=== PATIENT | female | born 1980 | race Hispanic/Latino ===

== ENCOUNTER → 2017-05-06 | Outpatient (CLI) | payer OTHER ==
[~2017-05-06] MED LIST: SERT100T PO; TOPI100T31 PO; [UNRECOGNIZED DRUG - OTHER] SQ
== END | disposition home or self-care (01) ==
LOC: RAH 09:57
PROVIDERS: ATTEND Physician Assistant Medical
DX: N63.20 Unspecified lump in the left breast, unspecified quadrant (principal); R92.2 Inconclusive mammogram
CPT/HCPCS: 76641; 77065

== ENCOUNTER → 2017-05-18 | Outpatient (CLI) | payer OTHER | END | disposition home or self-care (01) | LOC: RAH 10:00 | PROVIDERS: ATTEND Specialist | DX: N60.32 Fibrosclerosis of left breast (principal); N63.22 Unspecified lump in the left breast, upper inner quadrant | CPT/HCPCS: 19083; 76942; A4215 ×3; 19084 ==

== ENCOUNTER 2018-01-25 08:20 | Emergency (ER) | payer OTHER ==
[2018-01-25 08:59] LABS: BASOPHILS % (AUTO) 0.3 % (0.0-5.0); EOSINOPHILS % (AUTO) 2.7 % (0.0-8.0); HEMATOCRIT 40.1 % (36-48); LYMPHOCYTES % (AUTO) 12.1 % (21.0-51.0); MEAN CORPUSCULAR HEMOGLOBIN 32.8 pg (27.0-33.0); MEAN CORPUSCULAR VOLUME 96.3 fL (79-99); MONOCYTES % (AUTO) 6.6 % (3.0-13.0); NEUTROPHILS % (AUTO) 78.3 % (40.0-77.0); PLATELET COUNT (AUTO) 237 K/uL (130-400); RED BLOOD CELL COUNT(AUTO) 4.17 MIL/uL (4.00-5.50); WHITE BLOOD COUNT (AUTO) 6.7 K/uL (4.8-10.8)
[2018-01-25] MEDS ORDERED: ACETAMINOPHEN 325 MG TAB ONE (09:03)
[2018-01-25 09:07] LABS: CREATININE 0.8 mg/dL (0.5-1.5)
[2018-01-25 09:15] LABS: ALBUMIN 3.4 g/dL (3.5-5.0); BILIRUBIN,TOTAL 0.4 mg/dL (0.2-1.0); TOTAL PROTEIN, SERUM 6.6 g/dL (6.0-8.3)
== END 2018-01-25 10:08 | disposition home or self-care (01) ==
LOC: EDH 08:20
DX: S93.491A Sprain of other ligament of right ankle, initial encounter (principal); S40.011A Contusion of right shoulder, initial encounter; S70.01XA Contusion of right hip, initial encounter; S09.8XXA Other specified injuries of head, initial encounter; V49.49XA Driver injured in collision with other motor vehicles in traffic accident, initial encounter; Y93.89 Activity, other specified; Y92.89 Other specified places as the place of occurrence of the external cause; Y99.8 Other external cause status
CPT/HCPCS: 36415; 70450; 72125; 73030; 73502; 73600; 80053; 85025

== ENCOUNTER 2019-06-26 13:19 | Emergency (ER) | payer OTHER ==
[2019-06-26 14:02] LABS: BASOPHILS % (AUTO) 0.5 % (0.0-5.0); EOSINOPHILS % (AUTO) 3.2 % (0.0-8.0); HEMATOCRIT 42.1 % (36-48); LYMPHOCYTES % (AUTO) 18.8 % (21.0-51.0); MEAN CORPUSCULAR HEMOGLOBIN 31.6 pg (27.0-33.0); MEAN CORPUSCULAR HGB CONC 34.2 g/dL (32.0-36.0); MEAN CORPUSCULAR VOLUME 92.5 fL (79-99); MONOCYTES % (AUTO) 4.4 % (3.0-13.0); NEUTROPHILS % (AUTO) 72.7 % (40.0-77.0); PLATELET COUNT (AUTO) 344 K/uL (130-400); RED BLOOD CELL COUNT(AUTO) 4.55 MIL/uL (4.00-5.50); RED CELL DISTRIBUTION WIDTH 11.9 % (11.0-15.5); WHITE BLOOD COUNT (AUTO) 9.6 K/uL (4.8-10.8)
[2019-06-26 14:11] LABS: CREATININE 0.7 mg/dL (0.5-1.5); POTASSIUM 4.1 mmol/L (3.5-5.1)
[2019-06-26 14:12] LABS: PARTIAL THROMBOPLASTIN TIME 23.2 SEC (26.3-35.5)
[2019-06-26 14:17] LABS: ALBUMIN 3.6 g/dL (3.5-5.0); BILIRUBIN,TOTAL 0.3 mg/dL (0.2-1.0); TOTAL PROTEIN, SERUM 7.5 g/dL (6.0-8.3)
[2019-06-26 14:25] LABS: INR 0.94 (0.85-1.15); PROTHROMBIN TIME 9.9 SEC (9.6-11.6)
== END 2019-06-26 15:05 | disposition home or self-care (01) ==
LOC: EDH 13:19
DX: D69.6 Thrombocytopenia, unspecified (principal); Z90.49 Acquired absence of other specified parts of digestive tract; Z98.890 Other specified postprocedural states
CPT/HCPCS: 36415; 80053; 85025; 85610; 85730

== ENCOUNTER 2020-02-17 01:25 | Emergency (ER) | payer OTHER ==
[2020-02-17] MEDS ORDERED: FAMOTIDINE/PF 20 MG/2 ML VIAL IV ONE (01:53)
[2020-02-17] MEDS ORDERED: ONDANSETRON HCL 4 MG/2 ML VIAL ONE (01:53)
[2020-02-17 02:06] LABS: BASOPHILS % (AUTO) 0.3 % (0.0-5.0); HEMATOCRIT 41.3 % (36-48); LYMPHOCYTES % (AUTO) 15.7 % (21.0-51.0); MEAN CORPUSCULAR HEMOGLOBIN 27.4 pg (27.0-33.0); MEAN CORPUSCULAR VOLUME 85.7 fL (79-99); MONOCYTES % (AUTO) 5.9 % (3.0-13.0); NEUTROPHILS % (AUTO) 76.8 % (40.0-77.0); PLATELET COUNT (AUTO) 460 K/uL (130-400); RED BLOOD CELL COUNT(AUTO) 4.82 MIL/uL (4.00-5.50); RED CELL DISTRIBUTION WIDTH 12.9 % (11.0-15.5)
[2020-02-17 02:08] LABS: APPEARANCE,URINE Clear (CLEAR); BILIRUBIN,URINE Negative (NEGATIVE); COLOR,URINE Yellow (YELLOW); GLUCOSE, URINE (UA) Negative (NEGATIVE); KETONES,URINE Trace mg/dL (NEGATIVE); LEUKOCYTE ESTERASE ,URINE Trace (NEGATIVE); NITRATE,URINE Negative (NEGATIVE); OCCULT BLOOD,URINE Small (NEGATIVE); PH,URINE 6.5 (5.0-8.0); PROTEIN,URINE Negative (NEGATIVE)
[2020-02-17 02:19] LABS: BACTERIA,URINE Few /HPF (None Seen)
[2020-02-17 02:21] LABS: MUCUS,URINE Few LPF (None Seen)
[2020-02-17 02:28] LABS: ALBUMIN 3.6 g/dL (3.5-5.0); BILIRUBIN,TOTAL 0.2 mg/dL (0.2-1.0); CREATININE 0.7 mg/dL (0.5-1.5); POTASSIUM 3.8 mmol/L (3.5-5.1); TOTAL PROTEIN, SERUM 7.6 g/dL (6.0-8.3)
== END 2020-02-17 04:24 | disposition home or self-care (01) ==
LOC: EDH 01:25
DX: R10.13 Epigastric pain (principal); R11.10 Vomiting, unspecified; G35 Multiple sclerosis; D72.829 Elevated white blood cell count, unspecified; Z90.49 Acquired absence of other specified parts of digestive tract; Z90.710 Acquired absence of both cervix and uterus; Z98.890 Other specified postprocedural states; Z88.6 Allergy status to analgesic agent
CPT/HCPCS: 36415; 74176; 80053; 81001; 83605; 83690; 85025; 93005; 96361; 96374; 96375; 99285; J2405; J3490

== ENCOUNTER 2020-06-30 21:31 | Inpatient (IN) | payer OTHER ==
[~2020-06-30] VITALS: Ht 152.4 cm; Wt 57.0 kg
[2020-06-30] MEDS ORDERED: 0.9%NACL 1000ML 1,000 ML IV ONE (22:02)
[2020-06-30] MEDS ORDERED: ONDANSETRON 4MG INJ ONE (22:04)
[2020-06-30] MEDS ORDERED: MORPHINE 2 MG SYG ONE (22:04)
[2020-06-30 22:16] LABS: BASOPHILS % (AUTO) 1.1 % (0.0-5.0); HEMATOCRIT 49.2 % (36-48); LYMPHOCYTES % (AUTO) 25.3 % (21.0-51.0); MEAN CORPUSCULAR HEMOGLOBIN 29.1 pg (27.0-33.0); MEAN CORPUSCULAR HGB CONC 33.3 g/dL (32.0-36.0); MEAN CORPUSCULAR VOLUME 87.4 fL (79-99); MONOCYTES % (AUTO) 5.5 % (3.0-13.0); NEUTROPHILS % (AUTO) 67.7 % (40.0-77.0); PLATELET COUNT (AUTO) 603 K/uL (130-400); RED BLOOD CELL COUNT(AUTO) 5.63 MIL/uL (4.00-5.50); RED CELL DISTRIBUTION WIDTH 13.2 % (11.0-15.5); WHITE BLOOD COUNT (AUTO) 4.7 K/uL (4.8-10.8)
[2020-06-30 22:31] LABS: CREATININE 1.6 mg/dL (0.5-1.5)
[2020-06-30 22:40] LABS: ALBUMIN 2.7 g/dL (3.5-5.0); BILIRUBIN,TOTAL 0.7 mg/dL (0.2-1.0); TOTAL PROTEIN, SERUM 7.5 g/dL (6.0-8.3)
[2020-06-30] MEDS ORDERED: ZOSYN 3.375GM+NS 50ML 50 ML IV ONE (23:01)
[2020-06-30] MEDS ORDERED: IOHEXOL-350 75 ML VIAL IV ONE (23:07)
[2020-06-30] MEDS ORDERED: HYDROMORPHONE 1 MG INJ ONE (23:43)
[2020-06-30 23:54] LABS: APPEARANCE,URINE Clear (CLEAR); BILIRUBIN,URINE Negative (NEGATIVE); COLOR,URINE Yellow (YELLOW); GLUCOSE, URINE (UA) Negative (NEGATIVE); KETONES,URINE Negative (NEGATIVE); LEUKOCYTE ESTERASE ,URINE Negative (NEGATIVE); NITRATE,URINE Negative (NEGATIVE); OCCULT BLOOD,URINE Small (NEGATIVE); PH,URINE 5.5 (5.0-8.0); PROTEIN,URINE POS 1+ mg/dL (NEGATIVE)
[2020-07-01] VITALS (22 sets, daily range): BP systolic 99–141; BP diastolic 59–91
[2020-07-01 00:01] LABS: BACTERIA,URINE Few /HPF (None Seen); RBC,URINE 0-1 /HPF (0-1); WBC,URINE None Seen /HPF (0-1)
[2020-07-01] MEDS ORDERED: VANCOMYCIN PROTOCOL PER PHARMACY IV SCH (00:30)
[2020-07-01] MEDS ORDERED: VANCOMYCIN 1G/250ML KIT 250 ML IV SCH (00:30)
[2020-07-01] MEDS ORDERED: HYDROMORPHONE 1 MG INJ ONE ×2 (00:41→05:39)
[2020-07-01] MEDS ORDERED: GUAIFENESIN-DM 200/20 MG 10 ML PO PRN (00:45)
[2020-07-01] MEDS ORDERED: DiphenhydrAMINE HCL 50 MG/ML VIAL IV PRN (00:45)
[2020-07-01] MEDS ORDERED: MAG/ALUM/SIMETH 30 ML UDCUP PO PRN (00:45)
[2020-07-01] MEDS ORDERED: NITROGLYCERIN 0.4 MG SL TAB SL PRN (00:45)
[2020-07-01] MEDS ORDERED: LACTULOSE 20 GM/30 ML UDCUP PO PRN (00:45)
[2020-07-01] MEDS ORDERED: PHARMACY COMMUNICATION MISC SCH ×2 (01:00→14:45)
[2020-07-01] MEDS ORDERED: FLUCONAZOLE 200 MG/NS 100 ML 100 ML ONE (01:53)
[2020-07-01] MEDS ORDERED: VANCOMYCIN 1G/250ML KIT 250 ML IV ONE (01:53)
[2020-07-01 04:59] LABS: HEMATOCRIT 30.5 % (36-48); MEAN CORPUSCULAR HEMOGLOBIN 29.4 pg (27.0-33.0); MEAN CORPUSCULAR HGB CONC 32.8 g/dL (32.0-36.0); MEAN CORPUSCULAR VOLUME 89.7 fL (79-99); RED BLOOD CELL COUNT(AUTO) 3.4 MIL/uL (4.00-5.50); RED CELL DISTRIBUTION WIDTH 13.4 % (11.0-15.5); WHITE BLOOD COUNT (AUTO) 1.9 K/uL (4.8-10.8)
[2020-07-01 05:12] LABS: ALANINE AMINOTRANSFERASE 15 U/L (12-78); ALBUMIN 0.7 g/dL (3.5-5.0); ASPARTATE AMINOTRANSFERASE 30 U/L (10-37); BILIRUBIN,TOTAL 0.3 mg/dL (0.2-1.0); CARBON DIOXIDE 11 mmol/L (21-32); CREATININE 0.4 mg/dL (0.5-1.5); GLOMERULAR FILTR. RATE CALC 188 mL/min (>60); GLUCOSE,RANDOM 82 mg/dL (70-105); SODIUM SERUM 145 mmol/L (136-145); TOTAL PROTEIN, SERUM 2.7 g/dL (6.0-8.3); UREA NITROGEN, BLOOD 15 mg/dL (7-18)
[2020-07-01 05:13] LABS: ABG BASE EXCESS -7.7 mmol/L (-2.0-3.0); ABG HCO3 17.5 mmol/L (21.0-28.0); ABG OXYGEN SATURATION 95.5 % (95.0-99.0); ABG PCO2 35 mmHg (32-45)
[2020-07-01 05:37] LABS: POTASSIUM 2.5 mmol/L (3.5-5.1)
[2020-07-01 05:38] LABS: CHLORIDE 122 mmol/L (101-111)
[2020-07-01] MEDS ORDERED: POTASSIUM CHLORIDE 10% ELIXIR 20 MEQ/15 ML UDCUP PO PRN (06:00)
[2020-07-01] MEDS: LACTATED RINGERS 1000ML 1,000 ML IV SCH ×4 (06:28→21:27)
[2020-07-01 06:42] LABS: CREATININE 0.7 mg/dL (0.5-1.5); POTASSIUM 4.2 mmol/L (3.5-5.1)
[2020-07-01] MEDS ORDERED: COMPOUND IV MISC 1 EACH IVSOLN MISC PRN (07:00)
[2020-07-01] MEDS ORDERED: ZOSYN 3.375GM+NS 50ML 50 ML IV ONE (07:24)
[2020-07-01] MEDS ORDERED: LIDOCAINE PF 100MG/5ML (2%) SYRINGE 5ML ONE (07:59)
[2020-07-01] MEDS ORDERED: SUCCINYLCHOLINE CHLORIDE 20 MG/ML 10 ML VIAL ONE (07:59)
[2020-07-01] MEDS ORDERED: PROPOFOL 10 MG/ML 20ML VIAL IV ONE (08:00)
[2020-07-01] MEDS ORDERED: ROCURONIUM 10MG/1ML SYR 10 MG/ML ML ONE ×2 (08:01→08:51)
[2020-07-01] MEDS ORDERED: MIDAZOLAM HCL 1 MG/ML 2ML VIAL ONE (08:01)
[2020-07-01] MEDS ORDERED: ALBUMIN (HUMAN) 5% 250 ML IV ONE (08:27)
[2020-07-01] MEDS ORDERED: SODIUM BICARB 8.4% 50ML SYRINGE ONE ×2 (08:27→09:20)
[2020-07-01] MEDS: ZOSYN 3.375GM+NS 50ML 50 ML IV SCH ×3 (08:30→16:00)
[2020-07-01 08:31] LABS: ABG BASE EXCESS -9.1 mmol/L (-2.0-3.0); ABG HCO3 18.1 mmol/L (21.0-28.0); ABG OXYGEN SATURATION 99.5 % (95.0-99.0); ABG PCO2 44 mmHg (32-45)
[2020-07-01] MEDS ORDERED: FENTANYL CITRATE PF 50 MCG/1 ML 5ML AMP IV ONE (08:39)
[2020-07-01] MEDS ORDERED: CEFAZOLIN SODIUM 1 GM VIAL ONE (08:50)
[2020-07-01] MEDS ORDERED: FAMOTIDINE 20MG VIAL IV SCH (09:00)
[2020-07-01] MEDS: ACYCLOVIR 500 MG VIAL 500 MG in 0.9%NACL 100ML 100 ML IV SCH (09:00)
[2020-07-01 09:17] LABS: ABG BASE EXCESS -4.3 mmol/L (-2.0-3.0); ABG HCO3 19.2 mmol/L (21.0-28.0); ABG PCO2 31 mmHg (32-45)
[2020-07-01] MEDS ORDERED: PHENYLEPHRINE HCL 10 MG/ML 1ML VIAL IV ONE (09:39)
[2020-07-01] MEDS ORDERED: METOCLOPRAMIDE 10 MG/2 ML VIAL ONE (09:40)
[2020-07-01] MEDS ORDERED: GLYCOPYRROLATE 1 MG/5 ML SYRINGE ONE (09:43)
[2020-07-01] MEDS ORDERED: NEOSTIGMINE 5MG/5ML SYR IV ONE (09:43)
[2020-07-01] MEDS ORDERED: LIDOCAINE HCL 400MG/20ML VIAL ONE (09:44)
[2020-07-01] MEDS ORDERED: BUPIVACAINE/EPI/PF 0.5% 30ML VIAL IJ ONE (09:45)
[2020-07-01] MEDS ORDERED: SUGAMMADEX SODIUM 200 MG/2 ML VIAL IV ONE (10:12)
[2020-07-01] MEDS: VANCOMYCIN 1G/250ML KIT 250 ML IV SCH ×2 (11:42→21:27)
[2020-07-01] MEDS: FLUCONAZOLE 400 MG/NS 200 ML 200 ML IV SCH (11:43)
[2020-07-01] MEDS ORDERED: BUPR-49 PO (12:44)
[2020-07-01] MEDS ORDERED: FAMO20TA8 PO (12:44)
[2020-07-01] MEDS ORDERED: VALA500T42 PO (12:44)
[2020-07-01] MEDS ORDERED: HYDR-4381 PO (12:45)
[2020-07-01] MEDS ORDERED: CETI10TA57 PO (12:45)
[2020-07-01] MEDS ORDERED: GLUCAGON 1MG KIT 1 MG ML IM PRN (13:45)
[2020-07-01] MEDS ORDERED: DEXTROSE 50%-WATER 50 ML DISP.SYRIN IV PRN (13:45)
[2020-07-01] MEDS: HYDROMORPHONE 1 MG INJ IVP PRN ×2 (14:28→21:25)
[2020-07-01 14:37] LABS: ALBUMIN 1.3 g/dL (3.5-5.0); BILIRUBIN,TOTAL 0.3 mg/dL (0.2-1.0); CREATININE 0.9 mg/dL (0.5-1.5); POTASSIUM 3.8 mmol/L (3.5-5.1); TOTAL PROTEIN, SERUM 4.4 g/dL (6.0-8.3)
[2020-07-01] MEDS ORDERED: [UNRECOGNIZED DRUG - OTHER] IJ SCH (15:00)
[2020-07-01] MEDS ORDERED: FOSPHENYTOIN SODIUM IJ SCH (15:00)
[2020-07-01 15:28] LABS: BASOPHILS % (AUTO) 1.4 % (0.0-5.0); EOSINOPHILS % (AUTO) 0.3 % (0.0-8.0); HEMATOCRIT 37.2 % (36-48); LYMPHOCYTES % (AUTO) 18.1 % (21.0-51.0); MEAN CORPUSCULAR HEMOGLOBIN 29.2 pg (27.0-33.0); MEAN CORPUSCULAR HGB CONC 33.6 g/dL (32.0-36.0); MEAN CORPUSCULAR VOLUME 86.9 fL (79-99); MONOCYTES % (AUTO) 4.5 % (3.0-13.0); NEUTROPHILS % (AUTO) 74.9 % (40.0-77.0); PLATELET COUNT (AUTO) 397 K/uL (130-400); RED BLOOD CELL COUNT(AUTO) 4.28 MIL/uL (4.00-5.50); RED CELL DISTRIBUTION WIDTH 13.5 % (11.0-15.5); WHITE BLOOD COUNT (AUTO) 3.5 K/uL (4.8-10.8)
[2020-07-01] MEDS: INSULIN HUMULIN R 100 UNIT/ML 3ML SQ SCH (17:11)
[2020-07-01] MEDS: PANTOPRAZOLE 40 MG/VIAL IVP SCH (21:26)
[2020-07-02] VITALS (22 sets, daily range): BP systolic 105–153; BP diastolic 58–82
[2020-07-02] MEDS: LACTATED RINGERS 1000ML 1,000 ML IV SCH ×4 (00:45→20:51)
[2020-07-02] MEDS ORDERED: LACTATED RINGERS 1000ML 500 ML IV ONE (00:45)
[2020-07-02] MEDS: ZOSYN 3.375GM+NS 50ML 50 ML IV SCH ×3 (00:56→15:51)
[2020-07-02] MEDS ORDERED: MORPHINE 2 MG SYG IM PRN (02:45)
[2020-07-02] MEDS ORDERED: FOSPHENYTOIN SODIUM 200 MG in 0.9%NACL 50ML 50 ML IJ SCH (03:00)
[2020-07-02] MEDS ORDERED: MORPHINE 2 MG SYG ONE (03:36)
[2020-07-02] MEDS: INSULIN HUMULIN R 100 UNIT/ML 3ML SQ SCH ×4 (05:01→17:28)
[2020-07-02 06:01] LABS: BASOPHILS % (AUTO) 0.1 % (0.0-5.0); EOSINOPHILS % (AUTO) 0.2 % (0.0-8.0); HEMATOCRIT 32.1 % (36-48); LYMPHOCYTES % (AUTO) 6.7 % (21.0-51.0); MEAN CORPUSCULAR HEMOGLOBIN 28.8 pg (27.0-33.0); MEAN CORPUSCULAR HGB CONC 32.7 g/dL (32.0-36.0); MEAN CORPUSCULAR VOLUME 88.2 fL (79-99); MONOCYTES % (AUTO) 2.9 % (3.0-13.0); NEUTROPHILS % (AUTO) 88.5 % (40.0-77.0); PLATELET COUNT (AUTO) 298 K/uL (130-400); RED BLOOD CELL COUNT(AUTO) 3.64 MIL/uL (4.00-5.50); RED CELL DISTRIBUTION WIDTH 13.8 % (11.0-15.5); WHITE BLOOD COUNT (AUTO) 12.3 K/uL (4.8-10.8)
[2020-07-02 06:31] LABS: ALBUMIN 1.2 g/dL (3.5-5.0); BILIRUBIN,TOTAL 0.2 mg/dL (0.2-1.0); CREATININE 0.7 mg/dL (0.5-1.5); MAGNESIUM 1.6 mg/dL (1.80-2.40); POTASSIUM 3.8 mmol/L (3.5-5.1); TOTAL PROTEIN, SERUM 4.8 g/dL (6.0-8.3)
[2020-07-02] MEDS: POTASSIUM CHLORIDE 20MEQ/100ML 100 ML IV PRN ×2 (06:39→14:06)
[2020-07-02 06:59] LABS: CRP QUANTITATIVE 646.7 mg/L (0.00-9.0)
[2020-07-02] MEDS: ACYCLOVIR 500 MG VIAL 500 MG in 0.9%NACL 100ML 100 ML IV SCH (07:51)
[2020-07-02] MEDS: FLUCONAZOLE 400 MG/NS 200 ML 200 ML IV SCH (07:51)
[2020-07-02] MEDS: VANCOMYCIN 1G/250ML KIT 250 ML IV SCH ×2 (07:51→20:52)
[2020-07-02] MEDS: PANTOPRAZOLE 40 MG/VIAL IVP SCH ×2 (07:52→20:52)
[2020-07-02] MEDS ORDERED: METOPROLOL TARTRATE 1 MG/ML 5ML VIAL IV PRN ×2 (08:30→08:45)
[2020-07-02] MEDS ORDERED: ACETAMINOPHEN 650 MG SUPPOSITORY RC PRN (08:45)
[2020-07-02] MEDS ORDERED: MORPHINE 2 MG SYG IV PRN (08:45)
[2020-07-02] MEDS: METOPROLOL TARTRATE 1 MG/ML 5ML VIAL IV PRN ×2 (09:00→16:40)
[2020-07-02] MEDS ORDERED: FUROSEMIDE 100MG VIAL IVP SCH (09:15)
[2020-07-02] MEDS: MAGNESIUM 2GM PREMIX 50ML 50 ML IV PRN (09:19)
[2020-07-02] MEDS: FUROSEMIDE 40MG VIAL IVP SCH ×2 (12:27→20:51)
[2020-07-02 13:15] LABS: CREATININE 0.8 mg/dL (0.5-1.5); MAGNESIUM 2.4 mg/dL (1.80-2.40); POTASSIUM 3.6 mmol/L (3.5-5.1)
[2020-07-02] MEDS: MORPHINE 2 MG SYG IM PRN (20:52)
[2020-07-03] VITALS (29 sets, daily range): BP systolic 119–147; BP diastolic 53–82
[2020-07-03] MEDS: ZOSYN 3.375GM+NS 50ML 50 ML IV SCH ×3 (00:52→17:00)
[2020-07-03] MEDS: METOPROLOL TARTRATE 1 MG/ML 5ML VIAL IV PRN (02:46)
[2020-07-03 03:37] LABS: BASOPHILS % (AUTO) 0.1 % (0.0-5.0); EOSINOPHILS % (AUTO) 0.1 % (0.0-8.0); HEMATOCRIT 29.8 % (36-48); LYMPHOCYTES % (AUTO) 5.4 % (21.0-51.0); MEAN CORPUSCULAR HGB CONC 32.9 g/dL (32.0-36.0); MEAN CORPUSCULAR VOLUME 88.2 fL (79-99); MONOCYTES % (AUTO) 2.6 % (3.0-13.0); NEUTROPHILS % (AUTO) 89.6 % (40.0-77.0); PLATELET COUNT (AUTO) 185 K/uL (130-400); RED BLOOD CELL COUNT(AUTO) 3.38 MIL/uL (4.00-5.50); RED CELL DISTRIBUTION WIDTH 14.1 % (11.0-15.5); WHITE BLOOD COUNT (AUTO) 17.1 K/uL (4.8-10.8)
[2020-07-03 03:54] LABS: ALBUMIN 1.4 g/dL (3.5-5.0); BILIRUBIN,TOTAL 0.4 mg/dL (0.2-1.0); CREATININE 0.7 mg/dL (0.5-1.5); POTASSIUM 3.4 mmol/L (3.5-5.1); TOTAL PROTEIN, SERUM 5.6 g/dL (6.0-8.3)
[2020-07-03] MEDS: LACTATED RINGERS 1000ML 1,000 ML IV SCH ×3 (04:24→20:49)
[2020-07-03] MEDS: INSULIN HUMULIN R 100 UNIT/ML 3ML SQ SCH ×4 (06:00→18:00)
[2020-07-03] MEDS: FUROSEMIDE 40MG VIAL IVP SCH ×3 (06:33→21:41)
[2020-07-03] MEDS: POTASSIUM CHLORIDE 20MEQ/100ML 100 ML IV PRN ×3 (06:33→22:24)
[2020-07-03] MEDS: VANCOMYCIN 1G/250ML KIT 250 ML IV SCH ×2 (07:55→22:24)
[2020-07-03] MEDS: FLUCONAZOLE 400 MG/NS 200 ML 200 ML IV SCH (07:56)
[2020-07-03] MEDS: PANTOPRAZOLE 40 MG/VIAL IVP SCH ×2 (07:56→20:56)
[2020-07-03] MEDS: ACYCLOVIR 500 MG VIAL 500 MG in 0.9%NACL 100ML 100 ML IV SCH (08:02)
[2020-07-03] MEDS: MORPHINE 2 MG SYG IM PRN ×2 (19:27→23:41)
[2020-07-04] VITALS (29 sets, daily range): BP systolic 117–155; BP diastolic 54–82
[2020-07-04] MEDS: ZOSYN 3.375GM+NS 50ML 50 ML IV SCH ×3 (00:04→16:32)
[2020-07-04] MEDS: POTASSIUM CHLORIDE 20MEQ/100ML 100 ML IV PRN ×3 (01:43→09:09)
[2020-07-04] MEDS ORDERED: MIDO5TAB4 PO (04:29)
[2020-07-04 04:55] LABS: BASOPHILS % (AUTO) 0.4 % (0.0-5.0); EOSINOPHILS % (AUTO) 0.3 % (0.0-8.0); HEMATOCRIT 27.4 % (36-48); LYMPHOCYTES % (AUTO) 8.8 % (21.0-51.0); MEAN CORPUSCULAR HEMOGLOBIN 28.4 pg (27.0-33.0); MEAN CORPUSCULAR HGB CONC 32.1 g/dL (32.0-36.0); MEAN CORPUSCULAR VOLUME 88.4 fL (79-99); MONOCYTES % (AUTO) 5.1 % (3.0-13.0); NEUTROPHILS % (AUTO) 84.8 % (40.0-77.0); PLATELET COUNT (AUTO) 124 K/uL (130-400); RED CELL DISTRIBUTION WIDTH 14.2 % (11.0-15.5); WHITE BLOOD COUNT (AUTO) 14.2 K/uL (4.8-10.8)
[2020-07-04 05:33] LABS: ALBUMIN 1.2 g/dL (3.5-5.0); BILIRUBIN,TOTAL 0.4 mg/dL (0.2-1.0); CREATININE 0.5 mg/dL (0.5-1.5); POTASSIUM 3.3 mmol/L (3.5-5.1); TOTAL PROTEIN, SERUM 5.5 g/dL (6.0-8.3)
[2020-07-04] MEDS: INSULIN HUMULIN R 100 UNIT/ML 3ML SQ SCH ×4 (05:40→18:00)
[2020-07-04] MEDS: FUROSEMIDE 40MG VIAL IVP SCH (05:44)
[2020-07-04] MEDS: LACTATED RINGERS 1000ML 1,000 ML IV SCH ×2 (05:46→16:33)
[2020-07-04] MEDS ORDERED: VANCOMYCIN 1G 2 GM in 0.9% NACL 500ML IV.SOLN 500 ML IV SCH (09:00)
[2020-07-04] MEDS: PANTOPRAZOLE 40 MG/VIAL IVP SCH ×2 (09:08→21:00)
[2020-07-04] MEDS: ACYCLOVIR 500 MG VIAL 500 MG in 0.9%NACL 100ML 100 ML IV SCH (09:09)
[2020-07-04] MEDS: FLUCONAZOLE 400 MG/NS 200 ML 200 ML IV SCH (09:09)
[2020-07-04] MEDS ORDERED: DIATR MEGLU/DIATRIZOATE SODIUM 30 ML BOTTLE ONE (10:27)
[2020-07-04] MEDS ORDERED: VANCOMYCIN 1G/250ML KIT 250 ML IV SCH (21:00)
[2020-07-05] VITALS (20 sets, daily range): BP systolic 112–148; BP diastolic 58–76
[2020-07-05] MEDS: ZOSYN 3.375GM+NS 50ML 50 ML IV SCH ×4 (00:17→23:10)
[2020-07-05] MEDS: INSULIN HUMULIN R 100 UNIT/ML 3ML SQ SCH ×4 (05:25→18:00)
[2020-07-05 05:27] LABS: BASOPHILS % (AUTO) 0.2 % (0.0-5.0); EOSINOPHILS % (AUTO) 0.7 % (0.0-8.0); HEMATOCRIT 28.3 % (36-48); LYMPHOCYTES % (AUTO) 10.1 % (21.0-51.0); MEAN CORPUSCULAR HEMOGLOBIN 29.1 pg (27.0-33.0); MEAN CORPUSCULAR HGB CONC 33.6 g/dL (32.0-36.0); MEAN CORPUSCULAR VOLUME 86.8 fL (79-99); MONOCYTES % (AUTO) 8.8 % (3.0-13.0); NEUTROPHILS % (AUTO) 78.9 % (40.0-77.0); PLATELET COUNT (AUTO) 141 K/uL (130-400); RED BLOOD CELL COUNT(AUTO) 3.26 MIL/uL (4.00-5.50); RED CELL DISTRIBUTION WIDTH 14.2 % (11.0-15.5); WHITE BLOOD COUNT (AUTO) 15.1 K/uL (4.8-10.8)
[2020-07-05 05:43] LABS: CREATININE 0.6 mg/dL (0.5-1.5)
[2020-07-05 06:02] LABS: POTASSIUM 2.4 mmol/L (3.5-5.1)
[2020-07-05] MEDS: POTASSIUM CHLORIDE 20MEQ/100ML 100 ML IV PRN ×4 (06:26→14:11)
[2020-07-05] MEDS: PANTOPRAZOLE 40 MG/VIAL IVP SCH ×2 (07:56→20:35)
[2020-07-05] MEDS: FLUCONAZOLE 400 MG/NS 200 ML 200 ML IV SCH (07:56)
[2020-07-05] MEDS: MORPHINE 2 MG SYG IM PRN (07:58)
[2020-07-05] MEDS: ACYCLOVIR 500 MG VIAL 500 MG in 0.9%NACL 100ML 100 ML IV SCH (09:20)
[2020-07-05] MEDS ORDERED: MAGNESIUM 2GM PREMIX 50ML 50 ML IV PRN (10:00)
[2020-07-05 12:01] LABS: CREATININE 0.6 mg/dL (0.5-1.5); POTASSIUM 3.1 mmol/L (3.5-5.1)
[2020-07-05] MEDS: HYDROCODONE/ACETAMINOPHEN 5/325 MG TAB PO PRN ×4 (12:46→23:10)
[2020-07-05] MEDS: LACTATED RINGERS 1000ML 1,000 ML IV SCH (14:02)
[2020-07-06] VITALS (10 sets, daily range): BP systolic 100–130; BP diastolic 53–74
[2020-07-06] MEDS: INSULIN HUMULIN R 100 UNIT/ML 3ML SQ SCH ×4 (05:30→21:30)
[2020-07-06 06:17] LABS: BASOPHILS % (AUTO) 0.4 % (0.0-5.0); EOSINOPHILS % (AUTO) 0.5 % (0.0-8.0); HEMATOCRIT 34.8 % (36-48); LYMPHOCYTES % (AUTO) 6.7 % (21.0-51.0); MEAN CORPUSCULAR HEMOGLOBIN 28.4 pg (27.0-33.0); MEAN CORPUSCULAR HGB CONC 32.8 g/dL (32.0-36.0); MEAN CORPUSCULAR VOLUME 86.6 fL (79-99); MONOCYTES % (AUTO) 7.2 % (3.0-13.0); NEUTROPHILS % (AUTO) 83.1 % (40.0-77.0); PLATELET COUNT (AUTO) 153 K/uL (130-400); RED BLOOD CELL COUNT(AUTO) 4.02 MIL/uL (4.00-5.50); RED CELL DISTRIBUTION WIDTH 14.1 % (11.0-15.5); WHITE BLOOD COUNT (AUTO) 17.7 K/uL (4.8-10.8)
[2020-07-06 06:34] LABS: CREATININE 0.6 mg/dL (0.5-1.5); MAGNESIUM 1.6 mg/dL (1.80-2.40)
[2020-07-06 06:44] LABS: POTASSIUM 2.9 mmol/L (3.5-5.1)
[2020-07-06] MEDS ORDERED: LACTATED RINGERS 1000ML 500 ML IV ONE (08:15)
[2020-07-06] MEDS: HYDROCODONE/ACETAMINOPHEN 5/325 MG TAB PO PRN ×3 (08:41→21:15)
[2020-07-06] MEDS: ZOSYN 3.375GM+NS 50ML 50 ML IV SCH ×2 (08:43→18:18)
[2020-07-06] MEDS ORDERED: VALACYCLOVIR HCL 500 MG TABLET PO SCH (09:30)
[2020-07-06] MEDS: PANTOPRAZOLE 40 MG TAB DR PO SCH ×2 (11:04→15:30)
[2020-07-06] MEDS: CETIRIZINE HCL 5 MG TABLET PO SCH (11:04)
[2020-07-06] MEDS: KCL 20 MEQ ERTAB PO PRN ×4 (11:04→18:21)
[2020-07-06] MEDS: BUPROPION HCL 150 MG TABLET.SA PO SCH (11:05)
[2020-07-06] MEDS: LACTATED RINGERS 1000ML 1,000 ML IV SCH (11:21)
[2020-07-06] MEDS: FLUCONAZOLE 400 MG/NS 200 ML 200 ML IV SCH (12:42)
[2020-07-06] MEDS: MAGNESIUM 2GM PREMIX 50ML 50 ML IV PRN (15:33)
[2020-07-06] MEDS ORDERED: KETOROLAC 30MG VIAL (30MG/ML) ONE (19:26)
[2020-07-06] MEDS ORDERED: KETOROLAC 30MG VIAL (30MG/ML) IV SCH (20:30)
[2020-07-06] MEDS: FAMOTIDINE 20MG TAB PO SCH (21:14)
[2020-07-06] MEDS: POTASSIUM CHLORIDE 20MEQ/100ML 100 ML IV PRN (21:15)
[2020-07-07] MEDS: ZOSYN 3.375GM+NS 50ML 50 ML IV SCH ×3 (00:39→17:13)
[2020-07-07] MEDS: ACETAMINOPHEN 325 MG TAB PO PRN ×2 (02:02→22:51)
[2020-07-07] MEDS: DIPHENHYDRAMINE HCL 25 MG CAPSULE PO PRN ×2 (02:02→22:36)
[2020-07-07] MEDS: HYDROCODONE/ACETAMINOPHEN 5/325 MG TAB PO PRN ×4 (02:39→20:43)
[2020-07-07 03:34] VITALS: BP 113/59
[2020-07-07] MEDS: LACTATED RINGERS 1000ML 1,000 ML IV SCH (05:11)
[2020-07-07] MEDS: INSULIN HUMULIN R 100 UNIT/ML 3ML SQ SCH ×4 (05:45→21:00)
[2020-07-07 05:47] LABS: BASOPHILS % (AUTO) 0.2 % (0.0-5.0); EOSINOPHILS % (AUTO) 0.6 % (0.0-8.0); HEMATOCRIT 26.7 % (36-48); LYMPHOCYTES % (AUTO) 6.5 % (21.0-51.0); MEAN CORPUSCULAR HEMOGLOBIN 28.6 pg (27.0-33.0); MEAN CORPUSCULAR HGB CONC 32.6 g/dL (32.0-36.0); MEAN CORPUSCULAR VOLUME 87.8 fL (79-99); MONOCYTES % (AUTO) 5.9 % (3.0-13.0); NEUTROPHILS % (AUTO) 84.4 % (40.0-77.0); PLATELET COUNT (AUTO) 274 K/uL (130-400); RED BLOOD CELL COUNT(AUTO) 3.04 MIL/uL (4.00-5.50); RED CELL DISTRIBUTION WIDTH 14.3 % (11.0-15.5); WHITE BLOOD COUNT (AUTO) 25.8 K/uL (4.8-10.8)
[2020-07-07 06:12] LABS: CREATININE 0.6 mg/dL (0.5-1.5); POTASSIUM 3.5 mmol/L (3.5-5.1)
[2020-07-07] MEDS: PANTOPRAZOLE 40 MG TAB DR PO SCH ×2 (07:58→17:13)
[2020-07-07] MEDS: CETIRIZINE HCL 5 MG TABLET PO SCH (08:14)
[2020-07-07] MEDS: FLUCONAZOLE 400 MG/NS 200 ML 200 ML IV SCH (08:14)
[2020-07-07] MEDS: FAMOTIDINE 20MG TAB PO SCH ×2 (08:15→20:39)
[2020-07-07] MEDS: VALACYCLOVIR HCL 500 MG TABLET PO SCH (08:15)
[2020-07-07 08:18] VITALS: BP 114/67
[2020-07-07] MEDS ORDERED: KETOROLAC 30MG VIAL (30MG/ML) ONE (10:41)
[2020-07-07] MEDS: BUPROPION HCL 150 MG TABLET.SA PO SCH (10:45)
[2020-07-07 12:06] VITALS: BP 114/64
[2020-07-07] MEDS ORDERED: DIATR MEGLU/DIATRIZOATE SODIUM 30 ML BOTTLE ONE (12:11)
[2020-07-07] MEDS ORDERED: IOHEXOL 350 MG/ML 100ML INFUS..BTL IV ONE (14:12)
[2020-07-07 16:31] VITALS: BP 108/61
[2020-07-07] MEDS: KETOROLAC 30MG VIAL (30MG/ML) IV PRN ×2 (17:36→22:35)
[2020-07-07 19:50] VITALS: BP 97/59
[2020-07-07] MEDS: KCL 20 MEQ ERTAB PO PRN (20:39)
[2020-07-07] MEDS ORDERED: TEMAZEPAM 7.5 MG CAPSULE PO PRN (22:45)
[2020-07-07 23:19] VITALS: BP 102/60
[2020-07-08] VITALS: BP 119/78
[2020-07-08] MEDS: LACTATED RINGERS 1000ML 1,000 ML IV SCH ×2 (01:11→16:00)
[2020-07-08] MEDS: ZOSYN 3.375GM+NS 50ML 50 ML IV SCH ×3 (01:14→16:28)
[2020-07-08] MEDS: HYDROCODONE/ACETAMINOPHEN 5/325 MG TAB PO PRN ×3 (02:36→21:32)
[2020-07-08 03:50] VITALS: BP 114/65
[2020-07-08] MEDS: INSULIN HUMULIN R 100 UNIT/ML 3ML SQ SCH ×4 (05:37→21:00)
[2020-07-08] MEDS: KETOROLAC 30MG VIAL (30MG/ML) IV PRN (06:11)
[2020-07-08] MEDS: PANTOPRAZOLE 40 MG TAB DR PO SCH ×2 (06:11→16:28)
[2020-07-08 06:26] LABS: BASOPHILS % (AUTO) 0.3 % (0.0-5.0); EOSINOPHILS % (AUTO) 1.4 % (0.0-8.0); HEMATOCRIT 25.4 % (36-48); LYMPHOCYTES % (AUTO) 6.5 % (21.0-51.0); MEAN CORPUSCULAR HEMOGLOBIN 28.7 pg (27.0-33.0); MEAN CORPUSCULAR HGB CONC 32.7 g/dL (32.0-36.0); MEAN CORPUSCULAR VOLUME 87.9 fL (79-99); MONOCYTES % (AUTO) 7.1 % (3.0-13.0); NEUTROPHILS % (AUTO) 82.4 % (40.0-77.0); PLATELET COUNT (AUTO) 422 K/uL (130-400); RED BLOOD CELL COUNT(AUTO) 2.89 MIL/uL (4.00-5.50); RED CELL DISTRIBUTION WIDTH 14.3 % (11.0-15.5); WHITE BLOOD COUNT (AUTO) 27.8 K/uL (4.8-10.8)
[2020-07-08 06:34] LABS: CREATININE 0.6 mg/dL (0.5-1.5); POTASSIUM 3.5 mmol/L (3.5-5.1)
[2020-07-08 08:00] VITALS: BP 97/57
[2020-07-08] MEDS: FAMOTIDINE 20MG TAB PO SCH ×2 (08:51→20:34)
[2020-07-08] MEDS: CETIRIZINE HCL 5 MG TABLET PO SCH (08:51)
[2020-07-08] MEDS: BUPROPION HCL 150 MG TABLET.SA PO SCH (08:51)
[2020-07-08] MEDS: VALACYCLOVIR HCL 500 MG TABLET PO SCH (08:51)
[2020-07-08] MEDS: FLUCONAZOLE 400 MG/NS 200 ML 200 ML IV SCH (08:51)
[2020-07-08 11:00] VITALS: BP 124/72
[2020-07-08] MEDS: MORPHINE 2 MG SYG IVP PRN ×2 (12:27→19:40)
[2020-07-08] MEDS ORDERED: FENTANYL CITRATE PF 50 MCG/1 ML 2ML VIAL ONE (14:38)
[2020-07-08] MEDS ORDERED: MIDAZOLAM HCL 1 MG/ML 2ML VIAL ONE (14:39)
[2020-07-08] MEDS: ONDANSETRON 4MG INJ IV PRN (19:40)
[2020-07-08 20:00] VITALS: BP 123/75
[2020-07-09] VITALS: BP 126/61
[2020-07-09] MEDS: ONDANSETRON 4MG INJ IV PRN (00:20)
[2020-07-09] MEDS: MORPHINE 2 MG SYG IVP PRN ×4 (00:20→22:23)
[2020-07-09] MEDS: ZOSYN 3.375GM+NS 50ML 50 ML IV SCH ×2 (00:21→10:08)
[2020-07-09] MEDS: LACTATED RINGERS 1000ML 1,000 ML IV SCH ×2 (00:24→20:24)
[2020-07-09] MEDS: ACETAMINOPHEN 325 MG TAB PO PRN (00:42)
[2020-07-09 04:00] VITALS: BP 106/62
[2020-07-09 05:10] LABS: BASOPHILS % (AUTO) 0.2 % (0.0-5.0); EOSINOPHILS % (AUTO) 0.6 % (0.0-8.0); HEMATOCRIT 23.9 % (36-48); LYMPHOCYTES % (AUTO) 8.8 % (21.0-51.0); MEAN CORPUSCULAR HEMOGLOBIN 28.5 pg (27.0-33.0); MEAN CORPUSCULAR HGB CONC 33.1 g/dL (32.0-36.0); MEAN CORPUSCULAR VOLUME 86.3 fL (79-99); MONOCYTES % (AUTO) 7.9 % (3.0-13.0); NEUTROPHILS % (AUTO) 80.1 % (40.0-77.0); PLATELET COUNT (AUTO) 550 K/uL (130-400); RED BLOOD CELL COUNT(AUTO) 2.77 MIL/uL (4.00-5.50); RED CELL DISTRIBUTION WIDTH 14.4 % (11.0-15.5); WHITE BLOOD COUNT (AUTO) 20.5 K/uL (4.8-10.8)
[2020-07-09 05:21] LABS: CREATININE 0.6 mg/dL (0.5-1.5); POTASSIUM 3.2 mmol/L (3.5-5.1)
[2020-07-09] MEDS: HYDROCODONE/ACETAMINOPHEN 5/325 MG TAB PO PRN (06:03)
[2020-07-09] MEDS: INSULIN HUMULIN R 100 UNIT/ML 3ML SQ SCH ×4 (07:30→21:00)
[2020-07-09 08:08] VITALS: BP 137/70
[2020-07-09] MEDS: CETIRIZINE HCL 5 MG TABLET PO SCH (10:05)
[2020-07-09] MEDS: BUPROPION HCL 150 MG TABLET.SA PO SCH (10:05)
[2020-07-09] MEDS: PANTOPRAZOLE 40 MG TAB DR PO SCH ×2 (10:06→17:43)
[2020-07-09] MEDS: FAMOTIDINE 20MG TAB PO SCH ×2 (10:06→22:10)
[2020-07-09] MEDS: KCL 20 MEQ ERTAB PO PRN ×2 (10:07→17:43)
[2020-07-09] MEDS: VALACYCLOVIR HCL 500 MG TABLET PO SCH (10:07)
[2020-07-09] MEDS ORDERED: VANCOMYCIN PROTOCOL PER PHARMACY IV SCH (10:15)
[2020-07-09 12:26] VITALS: BP 122/78
[2020-07-09] MEDS ORDERED: VANCOMYCIN 1G 1.25 GM in 0.9% NACL 250ML 250 ML IV ONE (12:45)
[2020-07-09 13:44] LABS: INR 1.98 (0.85-1.15); PROTHROMBIN TIME 20.3 SEC (9.6-11.6)
[2020-07-09 16:22] VITALS: BP 114/59
[2020-07-09] MEDS: FLUCONAZOLE 400 MG/NS 200 ML 200 ML IV SCH (17:43)
[2020-07-09 20:00] VITALS: BP 123/72
[2020-07-09] MEDS: VANCOMYCIN 500MG+NS 100ML 100 ML IV SCH (23:57)
[2020-07-10] VITALS (8 sets, daily range): BP systolic 118–141; BP diastolic 56–78
[2020-07-10] MEDS: ZOSYN 3.375GM+NS 50ML 50 ML IV SCH ×3 (00:15→17:18)
[2020-07-10] MEDS: INSULIN HUMULIN R 100 UNIT/ML 3ML SQ SCH ×4 (04:58→21:00)
[2020-07-10] MEDS: VANCOMYCIN 500MG+NS 100ML 100 ML IV SCH ×3 (05:02→17:18)
[2020-07-10] MEDS: MORPHINE 2 MG SYG IVP PRN (05:13)
[2020-07-10] MEDS: LACTATED RINGERS 1000ML 1,000 ML IV SCH ×3 (06:24→19:40)
[2020-07-10] MEDS: PANTOPRAZOLE 40 MG TAB DR PO SCH ×2 (06:29→15:33)
[2020-07-10] MEDS: FLUCONAZOLE 400 MG/NS 200 ML 200 ML IV SCH (09:24)
[2020-07-10] MEDS: FAMOTIDINE 20MG TAB PO SCH ×2 (09:24→21:09)
[2020-07-10] MEDS: BUPROPION HCL 150 MG TABLET.SA PO SCH (09:24)
[2020-07-10] MEDS: CETIRIZINE HCL 5 MG TABLET PO SCH (09:25)
[2020-07-10] MEDS: VALACYCLOVIR HCL 500 MG TABLET PO SCH (09:25)
[2020-07-10] MEDS: HYDROMORPHONE 1 MG INJ IVP PRN ×2 (15:33→20:00)
[2020-07-10] MEDS: ACETAMINOPHEN 325 MG TAB PO PRN (17:17)
[2020-07-11] VITALS: BP 127/82
[2020-07-11] MEDS: ZOSYN 3.375GM+NS 50ML 50 ML IV SCH ×3 (00:42→16:41)
[2020-07-11] MEDS ORDERED: VANCOMYCIN 1G/250ML KIT 250 ML IV ONE (01:46)
[2020-07-11] MEDS: VANCOMYCIN 500MG+NS 100ML 100 ML IV SCH ×2 (01:54→06:00)
[2020-07-11] MEDS: HYDROMORPHONE 1 MG INJ IVP PRN ×4 (02:46→16:41)
[2020-07-11] MEDS: ACETAMINOPHEN 325 MG TAB PO PRN (02:53)
[2020-07-11 04:00] VITALS: BP 118/70
[2020-07-11 04:12] LABS: BASOPHILS % (AUTO) 0.5 % (0.0-5.0); EOSINOPHILS % (AUTO) 0.5 % (0.0-8.0); HEMATOCRIT 23.1 % (36-48); LYMPHOCYTES % (AUTO) 8.6 % (21.0-51.0); MEAN CORPUSCULAR HEMOGLOBIN 28.5 pg (27.0-33.0); MEAN CORPUSCULAR HGB CONC 32.5 g/dL (32.0-36.0); MEAN CORPUSCULAR VOLUME 87.8 fL (79-99); MONOCYTES % (AUTO) 9.7 % (3.0-13.0); NEUTROPHILS % (AUTO) 77.8 % (40.0-77.0); RED BLOOD CELL COUNT(AUTO) 2.63 MIL/uL (4.00-5.50); RED CELL DISTRIBUTION WIDTH 14.4 % (11.0-15.5); WHITE BLOOD COUNT (AUTO) 19.8 K/uL (4.8-10.8)
[2020-07-11 04:27] LABS: PLATELET COUNT (AUTO) 795 K/uL (130-400)
[2020-07-11 04:35] LABS: BILIRUBIN,DIRECT 0.4 mg/dL (0.0-0.3); BILIRUBIN,TOTAL 0.7 mg/dL (0.2-1.0); MAGNESIUM 1.8 mg/dL (1.80-2.40); PHOSPHORUS 3.3 mg/dL (2.5-4.9); POTASSIUM 3.5 mmol/L (3.5-5.1); TOTAL PROTEIN, SERUM 6.3 g/dL (6.0-8.3)
[2020-07-11 04:36] LABS: ALBUMIN 1.3 g/dL (3.5-5.0)
[2020-07-11 05:42] LABS: CREATININE 0.6 mg/dL (0.5-1.5)
[2020-07-11] MEDS: INSULIN HUMULIN R 100 UNIT/ML 3ML SQ SCH ×3 (07:30→16:30)
[2020-07-11 08:00] VITALS: BP 123/73
[2020-07-11] MEDS: LACTATED RINGERS 1000ML 1,000 ML IV SCH ×2 (09:33→11:44)
[2020-07-11] MEDS: FLUCONAZOLE 400 MG/NS 200 ML 200 ML IV SCH (09:33)
[2020-07-11] MEDS: CETIRIZINE HCL 5 MG TABLET PO SCH (09:34)
[2020-07-11] MEDS: PANTOPRAZOLE 40 MG TAB DR PO SCH ×2 (09:34→16:41)
[2020-07-11] MEDS: FAMOTIDINE 20MG TAB PO SCH (09:34)
[2020-07-11] MEDS: BUPROPION HCL 150 MG TABLET.SA PO SCH (09:34)
[2020-07-11] MEDS: VALACYCLOVIR HCL 500 MG TABLET PO SCH (09:34)
[2020-07-11] MEDS: KCL 20 MEQ ERTAB PO PRN ×2 (09:36→09:37)
[2020-07-11] MEDS ORDERED: COMPOUND IV REFRIGERATED 1 EACH IVSOLN MISC PRN (10:45)
[2020-07-11] MEDS ORDERED: VANCOMYCIN 1G 1.25 GM in 0.9% NACL 250ML 250 ML IV SCH (10:45)
[2020-07-11 11:38] VITALS: BP 126/73
[2020-07-11 16:00] VITALS: BP 111/68
[2020-07-11] MEDS ORDERED: VANCOMYCIN 750MG + NS 250 ML IV SCH ×2 (21:00)
== END 2020-07-11 18:30 | DRG 853 ==
LOC: EDH 21:31 → EDHIP 07-01 00:31 → 2CH 07-01 10:45 → 3CH 07-06 02:27 → 4CH 07-08 12:05
PROVIDERS: ADMIT Family Medicine; ATTEND Family Medicine
PROC: 0W9G0ZZ Drainage of Peritoneal Cavity, Open Approach (ICD-10-PCS; 2020-07-01)
PROC: 0DU907Z Supplement Duodenum with Autologous Tissue Substitute, Open Approach (ICD-10-PCS; principal; 2020-07-01 08:00)
PROC: 0DTJ0ZZ Resection of Appendix, Open Approach (ICD-10-PCS; 2020-07-01 08:00)
PROC: 0DBU0ZZ Excision of Omentum, Open Approach (ICD-10-PCS; 2020-07-01 08:00)
PROC: 02HV33Z Insertion of Infusion Device into Superior Vena Cava, Percutaneous Approach (ICD-10-PCS; 2020-07-10)
PROC: 0W9J30Z Drainage of Pelvic Cavity with Drainage Device, Percutaneous Approach (ICD-10-PCS; 2020-07-10)
DX: A41.9 Sepsis, unspecified organism (principal); K85.90 Acute pancreatitis without necrosis or infection, unspecified; R65.21 Severe sepsis with septic shock; K65.0 Generalized (acute) peritonitis; K65.1 Peritoneal abscess; K25.5 Chronic or unspecified gastric ulcer with perforation; K26.5 Chronic or unspecified duodenal ulcer with perforation; E87.2 Acidosis; N17.9 Acute kidney failure, unspecified; T81.31XA Disruption of external operation (surgical) wound, not elsewhere classified, initial encounter; E86.0 Dehydration; G35 Multiple sclerosis; F32.9 Major depressive disorder, single episode, unspecified; D64.9 Anemia, unspecified; E83.42 Hypomagnesemia; E87.6 Hypokalemia; F41.9 Anxiety disorder, unspecified; Z81.8 Family history of other mental and behavioral disorders; Z82.0 Family history of epilepsy and other diseases of the nervous system; Z82.49 Family history of ischemic heart disease and other diseases of the circulatory system; Z82.5 Family history of asthma and other chronic lower respiratory diseases; Z83.3 Family history of diabetes mellitus; Z90.710 Acquired absence of both cervix and uterus; Z20.822 Contact with and (suspected) exposure to COVID-19
CPT/HCPCS: 10030; 36415; 36600; 71045; 74177; 74178; 74240; 77012; 80048; 80053; 80076; 80202; 81001; 82435; 82803; 82947; 82948; 83605; 83690; 83735; 84100; 84132; 84145; 84295; 84484; 85018; 85025; 85027; 85610; 86140; 86677; 87040; 87071; 87088; 87205; 87426; 87507; 87804; 87880; 88304; 88307; 93005; 93306; 93356; 93970; 97039; 99152; 99153; 99291; A4344; C1894; C9113; G0378; J0133; J0330; J0690; J1170; J1450; J1885; J1940; J2001; J2250; J2370; J2405; J2543; J2704; J2710; J2765; J3010; J3370; J3475; J3480; J3490; J7030; J7040; J7050; J7120; P9045; Q0163; Q2009; Q9963; Q9967; U0003

== ENCOUNTER → 2020-07-17 | Outpatient (CLI) | payer OTHER ==
[~2020-07-17] MED LIST changes: +BUPR-49 PO; +CETI10TA57 PO; +FAMO20TA8 PO; +HYDR-4381 PO; +IOHEXOL 350 MG/ML 100ML INFUS..BTL IV ONE; +MIDO5TAB4 PO; -SERT100T PO; -TOPI100T31 PO; +VALA500T42 PO; -[UNRECOGNIZED DRUG - OTHER] SQ
== END | disposition home or self-care (01) ==
LOC: RAH 11:18
PROVIDERS: ATTEND Internal Medicine Infectious Disease
DX: J90 Pleural effusion, not elsewhere classified (principal); A41.9 Sepsis, unspecified organism
CPT/HCPCS: 74177; Q9967

== ENCOUNTER → 2020-07-29 | Outpatient (CLI) | payer OTHER ==
[~2020-07-29] MED LIST changes: +FENTANYL CITRATE PF 50 MCG/1 ML 2ML VIAL ONE; -IOHEXOL 350 MG/ML 100ML INFUS..BTL IV ONE; +MIDAZOLAM HCL 1 MG/ML 2ML VIAL ONE
== END | disposition home or self-care (01) ==
LOC: RAH 10:09
PROVIDERS: ATTEND Internal Medicine Infectious Disease
DX: N73.8 Other specified female pelvic inflammatory diseases (principal); J98.11 Atelectasis; J90 Pleural effusion, not elsewhere classified; Z90.49 Acquired absence of other specified parts of digestive tract; Z90.89 Acquired absence of other organs; Z90.711 Acquired absence of uterus with remaining cervical stump
CPT/HCPCS: 74176; 75989; 76942; 77012; 87071; 87205; C1729; C1769; J2250; J3010; 99152; 99153

== ENCOUNTER 2020-08-14 08:04 | Day surgery (SDC) | payer OTHER ==
[~2020-08-14 08:04] MED LIST changes: -FENTANYL CITRATE PF 50 MCG/1 ML 2ML VIAL ONE; -MIDAZOLAM HCL 1 MG/ML 2ML VIAL ONE
[2020-08-14] MEDS ORDERED: IOHEXOL-350 75 ML VIAL IV ONE (10:26)
== END 2020-08-14 12:10 ==
LOC: CLH 08:04 → DAH 08:04 → CLH 12:10
PROVIDERS: ATTEND Internal Medicine Infectious Disease
DX: L02.211 Cutaneous abscess of abdominal wall (principal); J98.11 Atelectasis; Z88.6 Allergy status to analgesic agent; Z90.49 Acquired absence of other specified parts of digestive tract
CPT/HCPCS: 49424; 74177; A4215; A4216; A4221; A4222; A4223 ×3; A4606; A4663; Q9967

== ENCOUNTER 2020-08-28 08:12 | Day surgery (SDC) | payer OTHER ==
[~2020-08-28] VITALS: Ht 152.4 cm; Wt 50.3 kg
[2020-08-28] MEDS ORDERED: IODIXANOL 320 MG/ML 100 ML VIAL ONE (08:21)
[2020-08-28] MEDS ORDERED: LIDOCAINE HCL 1% MDV 50ML VIAL ONE (08:21)
[2020-08-28 08:25] VITALS: BP 121/75
[2020-08-28 09:50] VITALS: BP 107/73
[2020-08-28 10:20] VITALS: BP 100/66
[2020-08-28] MEDS ORDERED: IOHEXOL-350 75 ML VIAL IV ONE (10:37)
[2020-08-28 11:02] VITALS: BP 99/68
== END 2020-08-28 12:10 | disposition home or self-care (01) ==
LOC: CLH 08:12
PROVIDERS: ATTEND Internal Medicine Infectious Disease
DX: L02.211 Cutaneous abscess of abdominal wall (principal)
CPT/HCPCS: 49424; 74178; 76080; A4222; A4223 ×2; A4606; A4663; Q9967 ×2; J1644; J3490

== ENCOUNTER → 2020-10-01 | Outpatient (CLI) | payer OTHER | END | disposition home or self-care (01) | LOC: RAH 09:55 | PROVIDERS: ATTEND Physician Assistant Medical | DX: R92.2 Inconclusive mammogram (principal); N63.15 Unspecified lump in the right breast, overlapping quadrants | CPT/HCPCS: 77066 ==

== ENCOUNTER → 2020-10-24 | Outpatient (CLI) | payer OTHER ==
[2020-10-24 11:02] LABS: INR 1.02 (0.85-1.15); PROTHROMBIN TIME 11.1 SEC (9.6-11.6)
== END | disposition home or self-care (01) ==
LOC: RAH 10:01
PROVIDERS: ATTEND Specialist
DX: D24.1 Benign neoplasm of right breast (principal); Z79.01 Long term (current) use of anticoagulants; Z90.710 Acquired absence of both cervix and uterus; Z90.49 Acquired absence of other specified parts of digestive tract; Z79.899 Other long term (current) drug therapy
CPT/HCPCS: 19083; 36415; 85610; A4215 ×3

== ENCOUNTER 2024-06-01 13:20 | Emergency (ER) | payer OTHER ==
[~2024-06-01] VITALS: Ht 152.4 cm; Wt 70.3 kg
[2024-06-01 14:16] LABS: BASOPHILS # (AUTO) 0.06 K/uL (0.00-0.20); BASOPHILS % (AUTO) 0.2 % (0.0-5.0); HEMATOCRIT 42.8 % (36-48); IMMATURE GRANULOCYTE ABSOLUTE 0.21 K/uL (0-1); LYMPHOCYTES # (AUTO) 1.5 K/uL (1.0-4.8); LYMPHOCYTES % (AUTO) 5.7 % (21.0-51.0); MEAN CORPUSCULAR HEMOGLOBIN 31.1 pg (27.0-33.0); MEAN CORPUSCULAR HGB CONC 34.3 g/dL (32.0-36.0); MEAN CORPUSCULAR VOLUME 90.5 fL (79-99); MONOCYTES # (AUTO) 0.8 K/uL (0.1-1.0); MONOCYTES % (AUTO) 2.8 % (3.0-13.0); NEUTROPHILS # (AUTO) 24.6 K/uL (1.8-7.7); NEUTROPHILS % (AUTO) 90.5 % (40.0-77.0); PLATELET COUNT (AUTO) 408 K/uL (130-400); RED BLOOD CELL COUNT(AUTO) 4.73 MIL/uL (4.00-5.50); RED CELL DISTRIBUTION WIDTH 12.1 % (11.0-15.5); WHITE BLOOD COUNT (AUTO) 27.2 K/uL (4.8-10.8)
[2024-06-01 14:18] LABS: APPEARANCE,URINE CLOUDY (CLEAR); BILIRUBIN,URINE NEGATIVE (NEGATIVE); COLOR,URINE YELLOW (YELLOW); GLUCOSE, URINE (UA) 30 mg/dL (NEGATIVE); KETONES,URINE 5 mg/dL (NEGATIVE); LEUKOCYTE ESTERASE ,URINE NEGATIVE Leu/uL (NEGATIVE); NITRATE,URINE NEGATIVE (NEGATIVE); OCCULT BLOOD,URINE NEGATIVE (NEGATIVE); PROTEIN,URINE 10 mg/dL (NEGATIVE); UROBILINOGEN,URINE 0.2 mg/dL (0.2-1.0)
[2024-06-01 14:21] LABS: CREATININE 0.8 mg/dL (0.5-1.0); POTASSIUM 3.3 mmol/L (3.5-5.1)
[2024-06-01 14:24] LABS: INR <= 0.93 (0.85-1.15); PROTHROMBIN TIME 10.4 SEC (9.6-11.6)
[2024-06-01 14:24] LABS: HCG,QUALITATIVE URINE NEGATIVE (NEGATIVE)
[2024-06-01 14:25] LABS: PARTIAL THROMBOPLASTIN TIME 22.2 SEC (26.3-35.5)
[2024-06-01 14:30] LABS: BACTERIA,URINE RARE /HPF (None Seen); MUCUS,URINE RARE LPF (None Seen); OTHER CASTS, URINE 1 /LPF (None Seen); SQUAMOUS EPITHELIAL CELL,UR FEW /HPF (0-2); YEAST,URINE BUDDING FEW /HPF (None Seen)
[2024-06-01] MEDS: ceFEPime HCL 1 GM VIAL IVPB SCH (15:38)
--- NOTE | 2024-06-01 15:38 | HMCIMG ---
CT LUMBAR SPINE W/O CONTRAST HISTORY: Spinal steroid injection COMPARISON: None TECHNIQUE: Multiple sequential axial images of the lumbar spine were obtained including post processing sagittal and coronal reconstruction images. Patient was not given contrast through intravenous route. FINDINGS: Small amount of air collection is seen at the posterior aspect of the central canal at L5-S1 level. Although this may be related to recent procedure, small hematoma or abscess collection cannot be excluded. This may also be related to posterior epidural/subdural collection at L5-S1 levels. There are extensive annular disc bulge with bilateral ligamentum flavum hypertrophy at L4-5 and L5-S1 levels causing central canal narrowing with nerve root encroachment. This is worse at L4-5 level with central canal measures 4.5 mm. Neurosurgical consultation is recommended. There is no loss of vertebral height. Evaluation for disc and cord pathology is limited with CT study. No evidence of fracture or dislocation is seen. IMPRESSION: 1. Small amount of air collection is seen at the posterior aspect of the central canal at L5-S1 level. Although this may be related to recent procedure, small hematoma or abscess collection cannot be excluded. This may also be related to posterior epidural/subdural collection at L5-S1 levels. There are extensive annular disc bulge with bilateral ligamentum flavum hypertrophy at L4-5 and L5-S1 levels causing central canal narrowing with nerve root encroachment. This is worse at L4-5 level with central canal measures 4.5 mm. Neurosurgical consultation is recommended. CT was performed with one or more following dose reduction techniques: automated exposure control, adjustment of the mA and kv according to patient's size, or use of a iterative reconstruction technique.
--- NOTE | 2024-06-01 15:39 | HMCIMG ---
CT HEAD/BRAIN W/O CONTRAST HISTORY: Steroid injection COMPARISON: None TECHNIQUE: Multiple sequential axial images of the head were obtained from the base of the skull through vertex. Patient was not given contrast through intravenous route. FINDINGS: The ventricles and extraventricular CSF spaces are nondilated for patient's age. There is no midline shift, mass effect or herniation. No acute intracranial bleed is seen. Visualized portion of the paranasal sinuses are grossly within normal limits. IMPRESSION: 1. No acute intracranial bleed is seen. CT was performed with one or more following dose reduction techniques: automated exposure control, adjustment of the mA and kv according to patient's size, or use of a iterative reconstruction technique.
--- NOTE | 2024-06-01 15:45 | NUR ---
MOVED TO ER 14 AT THIS TIME
--- NOTE | 2024-06-01 15:55 | NUR ---
SPOUSE ALYCE LARRY [phone]
--- NOTE | 2024-06-01 16:12 | NUR ---
TRANSFER: CALL PLACED TO [facility] TRANSFER [facility]; TRANSFER INITIATED FOR NEUROSURGERY SERVICES. DX: EPIDURAL BLEED VS. EPIDURAL ABSCESS
[2024-06-01] MEDS: 0.9%NACL 1000ML 1,000 ML IV ONE (16:58)
--- NOTE | 2024-06-01 17:52 | NUR ---
PER , PT WAS ACCEPTED FOR ER TO ER TRANSFER TO [facility].
--- NOTE | 2024-06-01 18:17 | NUR ---
CALLED [facility] TO SET UP TRANSPORT FOR PT.
--- NOTE | 2024-06-01 18:19 | NUR ---
[facility] TRANSFER: PATIENT REPORT GIVEN TO ER NURSE LEX
--- NOTE | 2024-06-01 18:28 | ERN ---
General Chief Complaint: Numbness Stated Complaint: SENT BY DOCTOR Time Seen by MD: 13:28 History of Present Illness Initial Comments 43-year-old female past medical history of multiple sclerosis and lumbar spine disc herniation came in for weakness to her left lower extremity with change in sensation. Patient states that yesterday she had an epidural injection by her pain management physician and after the procedure at 10:00 p.m. she felt change in sensation along with weakness in her lower extremity more to the left side. Patient states that she could only walk with assistance and when she stood up her knees gave out due to weakness. Patient denies any changes in bowel or urinary function. Patient denies pain to her back or lower extremities. Patient otherwise has no concerns. Allergies: Coded Allergies: codeine (Unverified Allergy, Severe, ANAPHYLAXIS , 07/01/20) Home Meds Reported Medications Midodrine HCl (Midodrine HCl) 5 Mg Tablet, 5 MG PO QID, TAB 07/04/20 Hydrocodone/Acetaminophen (Hydrocodone-Acetamin 10-300 mg) 1 Each Tablet, 1 EACH PO Q6HPRN PRN for PAIN LEVEL 6 TO 10, TAB 07/01/20 Cetirizine HCl (Cetirizine HCl) 10 Mg Tablet, 10 MG PO DAILY, TAB 07/01/20 Valacyclovir HCl (Valacyclovir) 500 Mg Tablet, 1 TAB PO QDP 07/01/20 Bupropion HCl (Bupropion Xl) 150 Mg Tab.er.24h, 1 TAB PO DAILY 07/01/20 Famotidine (Famotidine) 20 Mg Tablet, 1 TAB PO BID 07/01/20 Past Medical History Past Medical History: Other Medical History Other: MS Past Surgical History: None ROS Dictation CONSTITUTIONAL: Negative except for HPI HEAD/FACE: Negative except for HPI EENT: Negative except for HPI RESPIRATORY: Negative except for HPI GASTROINTESTINAL/ABDOMINAL: Negative except for HPI GENITOURINARY: Negative except for HPI MUSCULOSKELETAL: Negative except for HPI INTEGUMENTARY: Negative except for HPI NEUROLOGICAL/PSYCH: Negative except for HPI HEMATOLOGIC/LYMPHATIC: Negative except for HPI All Systems Negative, Except as noted above. 13 point review of systems assessed and all negative except for above. Physical Exam Physical Exam Dictation Vital Signs reviewed General Appearance: Alert, oriented x 3, no acute distress, well developed, nourished. Head and Face: non-traumatic. Eyes: PERRL, pink conjunctivas, eyelid no trauma, anterior chamber with arcus senilis. Ears: Pinnas intact and no signs of trauma or erythema ear canals clear and no discharge TM no erythema Nose: No discharge, no bleeding. Oropharynx: Mouth normal, tongue pink, pharynx clear,no erythema, tonsils no exudates, no abscesses noted, mucous membrane moist Neck: Supple, non-tender, no thyromegaly, no masses, no JVD, no bruits Breast:Deferred Chest:No tenderness, no crepitus, no paradoxical movement, no retractions Lungs:Clear, well-ventilated, symmetric, no rales, no wheezing, no rhonchi, no stridor, good breath sounds bilaterally Heart: Regular rate, regular rhythm, no murmur, no gallops Vascular: no peripheral edema, Abdomen: Soft, positive bowel sounds, nondistended, no guarding, nontender, no rebound, no masses no hepatomegaly, no splenomegaly, no Vitale's sign, no hernias. Rectal: Deferred Genital: Deferred Neurological: Normal speech, there is 3/5 strength in left lower extremity and 4/5 strength in right lower extremity and decreased sensation in both lower extremities. Musculoskeletal: Neck nontender, full range of motion, back nontender, full range of motion, Extremities: nontender, full range of motion Skin: Color pink, dry, no turgor, no rash, no lacerations, no abrasions, no contusions. Lymphatic: Deferred Results Laboratory and Microbiology Lab and Micro Result Laboratory Tests Test 06/01/24 13:50 06/01/24 13:59 06/01/24 15:50 Urine Color YELLOW (YELLOW) Urine Appearance CLOUDY (CLEAR) H Urine pH 7.0 (5.0-8.0) Urine Specific [place] 1.028 (1.001-1.031) Urine Protein 10 mg/dL (NEGATIVE) H Urine Glucose (UA) 30 mg/dL (NEGATIVE) H Urine Ketones 5 mg/dL (NEGATIVE) H Urine Occult Blood NEGATIVE (NEGATIVE) Urine Nitrate NEGATIVE (NEGATIVE) Urine Bilirubin NEGATIVE mg/dL (NEGATIVE) Urine Urobilinogen 0.2 mg/dL (0.2-1.0) Urine Leukocyte Esterase NEGATIVE Joseph/uL Urine RBC 11-25 /HPF (0-1) H Urine WBC 2-5 /HPF (0-1) H Urine Squamous Epithelial Cells FEW /HPF (0-2) Urine Bacteria RARE /HPF (None Seen) Urine Other Casts 1 /LPF (None Seen) Urine Yeast FEW /HPF (None Seen) Urine HCG, Qualitative NEGATIVE (NEGATIVE) White Blood Count 27.2 K/uL (4.8-10.8) H Red Blood Count 4.73 MIL/uL (4.00-5.50) Hemoglobin 14.7 g/dL (12.0-16.0) Hematocrit 42.8 % (36-48) Mean Corpuscular Volume 90.5 fL (79-99) Mean Corpuscular Hemoglobin 31.1 pg (27.0-33.0) Mean Corpuscular Hemoglobin Concent 34.3 g/dL (32.0-36.0) Red Cell Distribution Width 12.1 % (11.0-15.5) Platelet Count 408 K/uL (130-400) H Mean Platelet Volume 9.2 fL (7.5-10.5) Immature Granulocyte % (Auto) 0.8 % (0-1) Neutrophils (%) (Auto) 90.5 % (40.0-77.0) H Lymphocytes (%) (Auto) 5.7 % (21.0-51.0) L Monocytes (%) (Auto) 2.8 % (3.0-13.0) L Eosinophils (%) (Auto) 0.0 % (0.0-8.0) Basophils (%) (Auto) 0.2 % (0.0-5.0) Neutrophils # (Auto) 24.6 K/uL (1.8-7.7) H Lymphocytes # (Auto) 1.5 K/uL (1.0-4.8) Monocytes # (Auto) 0.8 K/uL (0.1-1.0) Eosinophils # (Auto) 0.00 K/uL (0.00-0.70) Basophils # (Auto) 0.06 K/uL (0.00-0.20) Absolute Immature Granulocyte (auto 0.21 K/uL (0-1) Nucleated Red Blood Cells 0.0 % (0.0-0.19) White Cell Morphology Comment See comments Prothrombin Time 10.4 SEC (9.6-11.6) Prothromb Time International Ratio <= 0.93 (0.85-1.15) Activated Partial Thromboplast Time 22.2 SEC (26.3-35.5) L Sodium Level 137 mmol/L (136-145) Potassium Level 3.3 mmol/L (3.5-5.1) L Chloride Level 101 mmol/L (101-111) Carbon Dioxide Level 27 mmol/L (21-32) Blood Urea Nitrogen 15 mg/dL (7-18) Creatinine 0.8 mg/dL (0.5-1.0) Glomerular Filtration Rate Calc 93 mL/min (>90) Random Glucose 123 mg/dL (70-105) H Total Calcium 9.3 mg/dL (8.5-10.1) Total Creatine Kinase 68 U/L (21-232) # Procalcitonin < 0.05 ng/mL (0.05-0.5) L Serum Test, Qualitative NEGATIVE (NEGATIVE) Lactic Acid Level 2.7 mmol/L (0.8-2.5) H MDM MDM: Differential diagnosis: Rationale: Tests considered and ordered secondary to shared decision making include: Previous outside records reviewed: Old ER visits. Risk of complication and/or morbidity or mortality of patient management: None Medications-Per medication reconciliation Need for hospitalization: Patient does meet criteria for hospitalization. Need for emergency major/minor surgery: No There are no social concerns with this patient. Prescription drug management Prescriptions will include symptomatic care Patient's prior external medical records from other ER visits were reviewed by me as indicated. Prior testing and results from previous visits were reviewed. Prior tests were taken into account with medical decision making and resource utilization, independent historian/historians were used to obtain complete medical history. I independently interpreted the test that were performed, results were reviewed by me and considered findings on radiology if ordered. Medical management and examination interpretation discussions were had by me with other qualified healthcare professionals as indicated for the patient's care. CT scan of lumbar spine is concerning for small collection rule out hematoma versus abscess. This was discussed with the radiology in the recommend patient getting a neurosurgical consult. Patient will be transferred to [facility] in her report has been given to neurosurgeon on-call who accepts the patient. Patient will be transferred ER to ER for possible MRI of lumbar spine at [facility]. As getting MRI here with significantly delay transfer. All reports has been given and patient was accepted. Patient has been informed she understands and agrees with plan of care. ED Course Orders Procedure Category Date Status Time Cbc With Differential LAB 06/01/24 Complete 13:44 Basic Metabolic Panel LAB 06/01/24 Complete 13:44 Creatine Kinase, Total LAB 06/01/24 Complete 13:44 Pt And Ptt LAB 06/01/24 Complete 13:44 Testing, LAB 06/01/24 Complete Serum Hcg 13:44 Urinalysis LAB 06/01/24 Complete W/Microscopic 13:44 ,Urine Test LAB 06/01/24 Complete 13:44 Ct Lumbar Spine W/O CT 06/01/24 Resulted Contrast 13:44 Ct Head/Brain W/O CT 06/01/24 Resulted Contrast 13:47 Procalcitonin LAB 06/01/24 Complete 14:56 Cefepime Hcl 1 Gm PHA 06/01/24 In Process Vial (Maxipime 1 Gm Vi 15:30 Lactic Acid LAB 06/01/24 Complete 15:27 Blood Cult LUIS ALFREDO 06/01/24 In Process 15:27 Iv Insertion CPOE 06/01/24 Transmitted 15:28 0.9%Nacl 1000ml (Ns PHA 06/01/24 Complete 1000ml) 17:00 Current Medications Medications (Trade) Dose Ordered Sig/Mic Route PRN Reason Start Time Stop Time Status Last Admin Dose Admin Cefepime HCl (MAXipime 1 GM vial) 1 gm ONCE IVPB 06/01/24 15:30 06/11/24 15:29 06/01/24 15:38 Sodium Chloride 1,000 ml @ 0 mls/hr Q0M ONCE IV 06/01/24 17:00 06/01/24 17:01 DC 06/01/24 16:58 Vital Signs Date Time Temp Pulse Resp B/P (MAP) Pulse Ox O2 Delivery O2 Flow Rate FiO2 06/01/24 16:37 98.1 69 14 104/73 100 Room Air* 0 21 06/01/24 13:32 98.4 93 18 123/78 98 DX & DISP Disposition: Transfer Departure Impression: Primary Impression: Lower extremity weakness Additional Impression: Status post epidural steroid injection Condition: Stable Referrals: TACO QUIROZ MD (PCP) MANUEL WANG MD Jun 01, 2024 18:28
--- NOTE | 2024-06-01 18:30 | NUR ---
[facility] BY TO [facility] PT.
--- NOTE | 2024-06-01 18:31 | NUR ---
[id number] IS HERE TO FOOD AND NUTRITION PROFESSOR AND TRANSFER THE PT TO [facility] ER TO ER
[2024-06-01 18:40] VITALS: BP 100/75; PULSE 64; RESP 12; TEMP 98.1; O2SAT 100
== END 2024-06-01 18:35 | disposition short-term general hospital (02) ==
LOC: EDH 13:20
DX: R53.1 Weakness (principal); M79.662 Pain in left lower leg; Z79.899 Other long term (current) drug therapy; Z88.5 Allergy status to narcotic agent
CPT/HCPCS: 99285; 70450; 96365; 96361; 82550; 80048; 84703; 85025; 85610; 85730; 87040 ×2; 83605; 81001; 81025; 36415; 72131; 84145; J7030; J0692